=== PATIENT | male | born 1950 | race Caucasian/White ===

== ENCOUNTER 2019-06-27 07:02 | Outpatient (CLI) | payer MEDICARE, SELFPAY ==
[2019-06-27 07:06] VITALS: BMI 28.8
--- NOTE | 2019-06-27 07:12 | ECG_ITS ---
NAME OF STUDY: EXERCISE SESTAMIBI STRESS TEST INDICATION: Chest Pain Baseline blood pressure of 151/90 mm Hg, heart rate 66 beats per minute and oxygen saturation of 95%. EKG showed normal sinus rhythm with rightward axis. Nonspecific ST-T wave changes. The patient exercised for 7 minutes on a standard Kenneth protocol. Patient attained a maximum heart rate of 141 beats per minute(94 % of the maximum predicted heart rate) with a blood pressure at the peak exercise of 183/83 mm Hg and oxygen saturation of 91%. The EKG at the peak exercise revealed sinus tachycardia with [address] segment depression in inferolateral leads. Patient did not have any chest pain or any significant arrhythmia with the exercise. During the recovery phase, there were no new changes. Blood pressure at the end of the recovery phase was 180/97 mm Hg with a heart rate of 94 beats per minute and oxygen saturation of 98%. CONCLUSION: 1. Equivocal EKG response to treadmill exercise. 2. No exercise-induced chest pain or cardiac arrhythmia. 3. Good exercise tolerance, attained a maximum of 10.2 METs. Maximum VO2 of 35.7 mL/kg/min. 4. Baseline hypertension with normal response to exercise. 5. Perfusion scan will be documented separately. Electronically Signed On 06-27-2019 13:21:10 AUTOCUTTER by Myrna Smith M.D. [email or web address]
--- NOTE | 2019-06-27 07:13 | NMCV_ITS ---
NM renu perf SPECT r/s* [id number] Luis Alfredo Bae Age: 68 Gender: M : 1950 Exam Date: 06/27/2019 08:06 Ordering Phys: Jose Luis Ramos MD Technologist: WANDA Cerna Exam Location: [facility] Indications: CHEST PAIN STRESS TEST Please see separate stress test report in [facility] for full findings IMAGE PROTOCOL Rest/Stress 1 Exercise Day Radiopharmaceutical Dose (mCi) Administration Site Administered by Rest: Tc-99m 10.9 IV WANDA Sam Sestamibi Stress:Tc-99m 32.5 IV WANDA Sam Sestamibi Rest: 27-Jun-2019 60 Discovery 630 Stress: 27-Jun-2019 30 Discovery 630 Radiopharmaceutical was injected at 87% maximum heart rate. Images obtained in supine and prone position. SPECT RESULTS Technical Quality: Excellent Raw Data Analysis: Normal Image Corrections: No attenuation or motion correction applied Summed Stress Score: 2 Summed Rest Score: 0 Summed Difference Score: 2 PERFUSION FINDINGS Small sized perfusion abnormality of mild severity of mid to apical inferolateral wall on supine stress images with homogeneous tracer uptake on prone stress images. This is suggestive of attenuation artifact. FUNCTIONAL RESULTS (calculated via Gated SPECT) Stress Image LV EF (%): 69 Stress EDV (mL):91 TID: 0.92 Stress ESV (mL):28 FUNCTIONAL FINDINGS: The left ventricle is normal in size. Transient Ischemia Dilatation of 0.92. There is normal left ventricular systolic function. The left ventricular ejection fraction is normal with a value of 69%. There is normal left ventricular wall thickening. Normal end systolic and end diastolic volumes. IMPRESSIONS 1. Myocardial perfusion imaging is normal. 2. Overall left ventricular systolic function is normal without regional wall motion abnormalities. 3. The left ventricular ejection fraction is normal with a value of 69%. 4. This study suggests a low likelihood of angiographically significant coronary artery disease. Myrna Smith MD (Electronically Signed) Final Date: 27 June 2019 13:24 S
[2019-06-27 09:19] VITALS: BP 180/97; PULSE 98
== END 2019-06-27 07:03 | disposition home or self-care (01) ==
LOC: CDL 07:05
PROVIDERS: Family Provider Family Medicine; PCP Family Medicine; Visit Provider Family Medicine
DX: R07.89 Other chest pain (principal)
CPT/HCPCS: 78452; 93017; A9500

== ENCOUNTER 2024-08-07 04:32 | Inpatient (IN) | payer MEDICARE, SELFPAY ==
[2024-08-07] VITALS (29 sets, daily range): BP systolic 114–169; BP diastolic 70–93; PULSE 60–81; RESP 10–96; TEMP 36.6–36.9; O2SAT 95–100; BMI 27.9
--- NOTE | 2024-08-07 04:41 | XRR_ITS ---
PROCEDURE INFORMATION: Exam: XR Chest Exam date and time: 08/07/2024 4:48 AM Age: 74 years old Clinical indication: Chest wall pain; Additional info: Chest pain TECHNIQUE: Imaging protocol: Radiologic exam of the chest. Views: 1 view. COMPARISON: CR XR chest 2V* [id number] 06/18/2020 10:15 AM FINDINGS: Lungs: Unremarkable. No consolidation. Pleural spaces: Unremarkable. No pleural effusion. No pneumothorax. Heart/Mediastinum: Unremarkable. No cardiomegaly. Bones/joints: Unremarkable. XR/XR chest 1V portable [id number] IMPRESSION: No acute findings.
--- NOTE | 2024-08-07 04:41 | ECG_ITS ---
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 Measurements Intervals [place] Rate: 66 P: 91 DC: 160 QRS: 22 QRSD: 113 T: 61 QT: 353 QTc: 371 Interpretive Statements SINUS RHYTHM MODERATE INTRAVENTRICULAR CONDUCTION DELAY [110+ ms QRS DURATION] MODERATE ST DEPRESSION [0.05+ mV ST DEPRESSION] No previous ECG available for comparison Electronically Signed On 08-07-2024 17:34:22 CDT by Kwabena Kirkland M.D. [id number] [id number]
--- NOTE | 2024-08-07 04:45 | ED_ITS ---
Documented by User: Kristine Amor MD 08/07/24 05:38 HPI - Chest Pain 2 General: Chief Complaint: Chest Pain Stated Complaint: R side of CP goes to the back and down both arms Time Seen by Provider: 08/07/24 04:38 History of Present Illness: 74-year-old man with a history of hypert ension who presents emergency room with chest pain. He says over the last few days he had a mild burning chest pain but tonight it woke him up and it was quite a bit worse. He describes a burning chest pain that radiates to his right back. No nausea. No diaphoresis. He has had some mild cough recently. No shortness of breath Related Data Allergies Allergy/AdvReac Type Severity Reaction Status Date / Time No Known Allergies Allergy Verified 08/07/24 04:40 Review of Systems 2 Narrative: Constitutional symptoms: Negative except as documented in HPI. Skin symptoms: Negative except as documented in HPI. Eye symptoms: Negative except as documented in HPI. ENMT symptoms: Negative except as documented in HPI. Respiratory symptoms: Negative except as documented in HPI. Cardiovascular symptoms: Negative except as documented in HPI. Gastrointestinal symptoms: Negative except as documented in HPI. Genitourinary symptoms: Negative except as documented in HPI. Musculoskeletal symptoms: Negative except as documented in HPI. Neurologic symptoms: Negative except as documented in HPI. Psychiatric symptoms: Negative except as documented in HPI. Endocrine symptoms: Negative except as documented in HPI. Physical Exam 2 Narrative: EXAM NARRATIVE: General: Alert, no acute distress. Skin: Warm, dry. Head: Normocephalic, atraumatic. Neck: Supple, trachea midline. Eye: Extraocular movements are intact. Ears, nose, mouth and throat: mucosa moist. Cardiovascular: Regular, Normal peripheral perfusion. Respiratory: Lungs are clear to auscultation, respirations are non-labored, breath sounds are equal, Symmetrical chest wall expansion. Gastrointestinal: Soft, Nontender, Non distended Musculoskeletal: Normal ROM, no deformity. Neurological: Alert and oriented, No focal neurological deficit observed. Psychiatric: Cooperative, appropriate mood & affect. Course 2 Vital Signs: Vital signs: Vital Signs Pulse Rate 71 08/07/24 06:03 Respiratory Rate 15 08/07/24 06:03 Blood Pressure 152/93 08/07/24 06:03 Pulse Oximetry 100 08/07/24 06:03 Oxygen Delivery Me thod Room Air 04/03/25 06:03 MDM - Chest Pain Medical Decision Making Differential diagnosis for patient with chest pain includes but is not limited to and based on the above HPI, review of systems and physical exam: Pneumonia. unstable angina. angina. Acute coronary syndrome / MO. Pulmonary embolism. Costochondritis / musculoskeletal. Pleurisy. Pericarditis. Esophageal spasm. Pancreatis. Cholecystitis. Orders placed to evaluate differential diagnosis based on the above differential, HPI and physical exam EKG: Time 4:38 AM. Rate 66. Normal sinus rhythm, nonspecific ST changes, no ectopy, normal NV & QRS intervals, This was reviewed and interpreted by myself the ER physician at 4:52 AM. Chest x-ray: No acute process. No infiltrate. No pneumothorax. This was reviewed and interpreted by myself the emergency room physician. I also reviewed the radiology report. Lab Review: Laboratory results were reviewed and interpreted by myself the emergency room physician. No leukocytosis. No anemia. No renal failure. Initial troponin was 58. Patient care transitioned to Dr. Ann at shift change awaiting repeat troponin Lab Data 08/07/24 04:41 08/07/24 04:41 Radiology Impressions Chest X-Ray 08/07/24 04:41 IMPRESSION: No acute findings. Laboratory Results WBC 7.30 10^3/uL (3.29-11.43) 08/07/24 04:41 RBC 4.31 10^6/uL (3.85-5.65) 08/07/24 04:41 Hgb 13.80 g/dL (11.27-16.99) 08/07/24 04:41 Hct 40.1 % (37-53) 08/07/24 04:41 MCV 93.0 fl (82-101) 08/07/24 04:41 MCH 32.0 pg (27-33) 08/07/24 04:41 MCHC 34.4 g/dL (30-55) 08/07/24 04:41 RDW 12.0 % (12.1-15.1) L 08/07/24 04:41 Plt Count 285 10^3/cmm (157-399) 08/07/24 04:41 MPV 8.6 fL (7.4-10.4) 08/07/24 04:41 Neut % (Auto) 66.0 % 08/07/24 04:41 Lymph % (Auto) 24.4 % 08/07/24 04:41 Wallace % (Auto) 7.0 % 08/07/24 04:41 Eos % (Auto) 2.1 % 08/07/24 04:41 Baso % (Auto) 0.4 % 08/07/24 04:41 Neut # (Auto) 4.82 10^3/uL (1.8-7.7) 08/07/24 04:41 Lymph # (Auto) 1.8 10^3/uL (0.8-4.8) 08/07/24 04:41 Wallace # (Auto) 0.5 10^3/uL (0.2-0.9) 08/07/24 04:41 Eos # (Auto) 0.2 10^3/uL (0.0-0.8) 08/07/24 04:41 Baso # (Auto) 0.0 10^3/uL (0.0-0.1) 08/07/24 04:41 Nucleated RBC % (auto) 0 % 08/07/24 04:41 Nucleated RBCs # 0.0 /100WBC 08/07/24 04:41 Sodium 135 mmol/L (136-145) L 08/07/24 04:41 Potassium 3.9 mmol/L (3.5-5.1) 08/07/24 04:41 Chloride 98 mmol/L (98-107) 08/07/24 04:41 Carbon Dioxide 26 mmol/L (22-29) 08/07/24 04:41 Anion Gap 14.9 (5-19) 08/07/24 04:41 BUN 15 mg/dL (8-23) 08/07/24 04:41 Creatinine 1.2 mg/dL (0.7-1.2) 08/07/24 04:41 GFR Calculation Not Reportable 08/07/24 04:41 Glucose 137 mg/dL (65-115) H 08/07/24 04:41 Calculated Osmolality 283 mOsm/kg (285-295) L 08/07/24 04:41 Calcium 9.5 mg/dL (8.5-10.5) 08/07/24 04:41 Total Bilirubin 0.4 mg/dL (0.15-1.2) 08/07/24 04:41 AST 19 U/L (0-40) 08/07/24 04:41 ALT 16 U/L (0-41) 08/07/24 04:41 Alkaline Phosphatase 117 U/L (40-130) 08/07/24 04:41 Troponin T Baseline 58 ng/L (0-15) H 08/07/24 04:41 Troponin T 120 Minute 61.85 ng/L (0-15) H 08/07/24 06:13 Delta Troponin T 3.85 ABS# (0-10) 08/07/24 06:13 Total Protein 7.6 g/dL (6.6-8.7) 08/07/24 04:41 Albumin 4.5 g/dL (3.5-5.2) 08/07/24 04:41 Globulin 3.1 g/dL (1.3-4.6) 08/07/24 04:41 Discharge Plan Discharge Patient Disposition: Placed in Observation Clinical Impression: Unstable angina pectoris Condition: Stable Referrals: Jose Luis Ramos MD [Primary Care Provider] - Print Language: Frisian Sign Out Sign Out Data: Patient Sign Out occurred on 08/07/24 at 05:44. Patient's care was discussed, and care was transferred from Kristine Amor MD to Troy Ann DO. Coding Level of Care Code ED Resaw Operator for Chg Fwd Documented by User: Troy Ann DO 08/07/24 06:46 HPI - Chest Pain 2 General: Chief Complaint: Chest Pain Stated Complaint: R side of CP goes to the back and down both arms Time Seen by Provider: 08/07/24 04:38 Related Data Allergies Allergy/AdvReac Type Severity Reaction Status Date / Time No Known Allergies Allergy Verified 08/07/24 04:40 Review of Systems 2 Card: Reports: chest pain Course 2 Vital Signs: Vital signs: Vital Signs Pulse Rate 71 08/07/24 06:03 Respiratory Rate 15 08/07/24 06:03 Blood Pressure 152/93 08/07/24 06:03 Pulse Oximetry 100 08/07/24 06:03 Oxygen Delivery Me thod Room Air 08/07/24 06:03 MDM - Chest Pain Medical Decision Making Differential diagnosis for patient with chest pain includes but is not limited to and based on the above HPI, review of systems and physical exam: Pneumonia. unstable angina. angina. Acute coronary syndrome / MO. Pulmonary embolism. Costochondritis / musculoskeletal. Pleurisy. Pericarditis. Esophageal spasm. Pancreatis. Cholecystitis. Orders placed to evaluate differential diagnosis based on the above differential, HPI and physical exam EKG: Time 4:38 AM. Rate 66. Normal sinus rhythm, nonspecific ST changes, no ectopy, normal NV & QRS intervals, This was reviewed and interpreted by myself the ER physician at 4:52 AM. Chest x-ray: No acute process. No infiltrate. No pneumothorax. This was reviewed and interpreted by myself the emergency room physician. I also reviewed the radiology report. Lab Review: Laboratory results were reviewed and interpreted by myself the emergency room physician. No leukocytosis. No anemia. No renal failure. Initial troponin was 58. Patient care transitioned to Dr. Ann at shift change awaiting repeat troponin Care assumed at change of shift from Dr. Amor. History when talking to the patient he is getting chest pain with exertion particularly when he walks or resolves after a few minutes this been going on for a while other times no escalates or does other exertional activities he gets were more of what he describes his chest discomfort. Overnight he had much more intense discomfort without any exertion associated with it. It waxes and wanes. He does have some subtle ST depression at V2 3 and 4 we do not have any old twelve-lead EKGs but I do have 12 leads from a stress test that was done 2 years ago these changes appear to be new. Stress test done at that time was read as having attenuation artifact with a normal ejection fraction and overall low incidence of ischemia no further evaluation was done because a stress test was read as negative. Patient reports despite this he has intermittently had chest discomfort since then but just much more intense particularly last night. Patient given aspirin and started on heparin also 1 inch of Nitropaste placed he still reporting some discomfort at this time. Radiates into his back and bilaterally into the arms. Discussed with Dr. Kirkland as well as the hospitalist. Will admit to the hospitalist on observation Dr. Kirkland indicated he is going to consider doing a angiogram later today and asked the patient be kept n.p.o. and started on heparin rather than Lovenox. I have reviewed with the patient orders written Medical Records I reviewed the patient's medical records. Lab Data I reviewed the patient's lab results. 08/07/24 04:41 08/07/24 04:41 Radiology Impressions Chest X-Ray 08/07/24 04:41 IMPRESSION: No acute findings. Laboratory Results WBC 7.30 10^3/uL (3.29-11.43) 08/07/24 04:41 RBC 4.31 10^6/uL (3.85-5.65) 08/07/24 04:41 Hgb 13.80 g/dL (11.27-16.99) 08/07/24 04:41 Hct 40.1 % (37-53) 08/07/24 04:41 MCV 93.0 fl (82-101) 08/07/24 04:41 MCH 32.0 pg (27-33) 08/07/24 04:41 MCHC 34.4 g/dL (30-55) 08/07/24 04:41 RDW 12.0 % (12.1-15.1) L 08/07/24 04:41 Plt Count 285 10^3/cmm (157-399) 08/07/24 04:41 MPV 8.6 fL (7.4-10.4) 08/07/24 04:41 Neut % (Auto) 66.0 % 08/07/24 04:41 Lymph % (Auto) 24.4 % 08/07/24 04:41 Wallace % (Auto) 7.0 % 08/07/24 04:41 Eos % (Auto) 2.1 % 08/07/24 04:41 Baso % (Auto) 0.4 % 08/07/24 04:41 Neut # (Auto) 4.82 10^3/uL (1.8-7.7) 08/07/24 04:41 Lymph # (Auto) 1.8 10^3/uL (0.8-4.8) 08/07/24 04:41 Wallace # (Auto) 0.5 10^3/uL (0.2-0.9) 08/07/24 04:41 Eos # (Auto) 0.2 10^3/uL (0.0-0.8) 08/07/24 04:41 Baso # (Auto) 0.0 10^3/uL (0.0-0.1) 08/07/24 04:41 Nucleated RBC % (auto) 0 % 08/07/24 04:41 Nucleated RBCs # 0.0 /100WBC 08/07/24 04:41 Sodium 135 mmol/L (136-145) L 08/07/24 04:41 Potassium 3.9 mmol/L (3.5-5.1) 08/07/24 04:41 Chloride 98 mmol/L (98-107) 08/07/24 04:41 Carbon Dioxide 26 mmol/L (22-29) 08/07/24 04:41 Anion Gap 14.9 (5-19) 08/07/24 04:41 BUN 15 mg/dL (8-23) 08/07/24 04:41 Creatinine 1.2 mg/dL (0.7-1.2) 08/07/24 04:41 GFR Calculation Not Reportable 08/07/24 04:41 Glucose 137 mg/dL (65-115) H 08/07/24 04:41 Calculated Osmolality 283 mOsm/kg (285-295) L 08/07/24 04:41 Calcium 9.5 mg/dL (8.5-10.5) 08/07/24 04:41 Total Bilirubin 0.4 mg/dL (0.15-1.2) 08/07/24 04:41 AST 19 U/L (0-40) 08/07/24 04:41 ALT 16 U/L (0-41) 08/07/24 04:41 Alkaline Phosphatase 117 U/L (40-130) 08/07/24 04:41 Troponin T Baseline 58 ng/L (0-15) H 08/07/24 04:41 Troponin T 120 Minute 61.85 ng/L (0-15) H 08/07/24 06:13 Delta Troponin T 3.85 ABS# (0-10) 08/07/24 06:13 Total Protein 7.6 g/dL (6.6-8.7) 08/07/24 04:41 Albumin 4.5 g/dL (3.5-5.2) 08/07/24 04:41 Globulin 3.1 g/dL (1.3-4.6) 08/07/24 04:41 All radiology interpretation(s) finalized by discharge EKG Data EKG 1: Interpretation: EKG 4:38 AM August 07, [address] depression very mild at V2 [address] elevation or T wave inversion rate of 66 EKG 2: Interpretation: August 08, 2019 6:07 AM Is sinus rhythm rate of 67 ST depression noted in V2 through the and 4 more notable than previous. This is new compared to EKG from stress test of 2020. There is no ST elevation or T wave inversion. Clincial Decision Support The following clinical decision support tools were used to aid in care of the patient HEART Score -> History: Highly Suspicious, EKG: Significant ST-deviation, Age: 65 or more yrs, Risk Factors: 1 or 2 Risk Factors, Troponin: Baseline Trop >45 ng/L. Resulting HEART Score: 9. Discharge Plan Discharge Patient Disposition: Placed in Observation Clinical Impression: Unstable angina pectoris Condition: Stable Referrals: Jose Luis Ramos MD [Primary Care Provider] - Print Language: Frisian Sign Out Sign Out Data: Patient Sign Out occurred on 08/07/24 at 05:44. Patient's care was discussed, and care was transferred from Kristine Amor MD to Troy Ann DO. Coding Level of Care Code ED Resaw Operator for Chg Sukhwinder
[2024-08-07 04:47] LABS: Basophils % 0.4 %; Eosinophils # 0.2 10^3/uL (0.0-0.8); Eosinophils % 2.1 %; Hematocrit 40.1 % (37-53); Lymphocytes # 1.8 10^3/uL (0.8-4.8); Lymphocytes % 24.4 %; Mean Corpuscular HGB Conc 34.4 g/dL (30-55); Mean Platelet Volume 8.6 fL (7.4-10.4); Monocytes # 0.5 10^3/uL (0.2-0.9); Neutrophils # 4.82 10^3/uL (1.8-7.7); Nucleated Red Blood Cells % 0 %; Platelet Count 285 10^3/cmm (157-399); Red Blood Count 4.31 10^6/uL (3.85-5.65)
[2024-08-07 05:04] LABS: Troponin(5th) Baseline 58 ng/L (0-15)
[2024-08-07 05:05] LABS: Alanine Aminotransferase 16 U/L (0-41); Albumin Level 4.5 g/dL (3.5-5.2); Alkaline Phosphatase 117 U/L (40-130); Anion Gap 14.9 (5-19); Aspartate Amino Transferase 19 U/L (0-40); Blood Urea Nitrogen 15 mg/dL (8-23); Calcium 9.5 mg/dL (8.5-10.5); Carbon Dioxide 26 mmol/L (22-29); Chloride 98 mmol/L (98-107); Creatinine Clr Calc Pharmacy 55.1292; Globulin 3.1 g/dL (1.3-4.6); Glucose 137 mg/dL (65-115); Osmolality Calculated 283 mOsm/kg (285-295); Potassium 3.9 mmol/L (3.5-5.1); Sodium 135 mmol/L (136-145); Total Bilirubin 0.4 mg/dL (0.15-1.2); Total Protein 7.6 g/dL (6.6-8.7)
--- NOTE | 2024-08-07 06:07 | ECG_ITS ---
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
[2024-08-07 06:35] LABS: Troponin 5 2HR 61.85 ng/L (0-15); Troponin 5 2HR Delta 3.85 ABS# (0-10)
[2024-08-07] MEDS: heparin 5,000 unit/mL INJ 1 mL IVP (06:58)
[2024-08-07] MEDS: heparin drip 25,000 UNIT/500 ML PREMIX 24 UNIT IV ×2 (06:59→16:21)
[2024-08-07] MEDS: nitroglycerin 1 gm/inch oint Pkt 1 INCH TOPICAL ×3 (07:00→20:03)
--- NOTE | 2024-08-07 08:11 | PC.NURSE ---
PATIENT COMPLAINING OF PAIN. PATIENT STATES LESS THAN WHEN HE ARRIVED BUT MAYBE I WAS EXPECTING A MIRACLE DRUG. PROVIDER NOTIFIED.
--- NOTE | 2024-08-07 08:13 | ECG_ITS ---
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 Measurements Intervals [place] Rate: 59 P: 76 [place]: 164 QRS: 32 QRSD: 97 T: 52 QT: 392 QTc: 390 Interpretive Statements SINUS BRADYCARDIA Compared to ECG 08/07/2024 06:07:10 Sinus rhythm no longer present ST (T wave) deviation no longer present Electronically Signed On 08-07-2024 17:34:19 CDT by Kwabena Kirkland M.D. [email or web address] [id number]
[2024-08-07] MEDS: nitroglycerin drip 50 MG/250 ML PREMIX IV (08:30)
--- NOTE | 2024-08-07 08:31 | XACV_ITS ---
Exam Room: 2 Ht: 173 cm Wt: 83 kg BSA: 2.02 m2 Gender: Male : 1950 Any Known Allergies: No known allergies Exam Priority: Routine Procedure(s): Procedure Description: Diagnostic procedure Procedure Description: Coronary angiogram Diagnostic Cath Status: Urgent Diagnostic Findings * Left Main has no significant disease. * Mid Left Anterior Descending: severe 90% stenosis, MIC: 3 flow. Calcified lesion. * Mid Right Coronary Artery: severe 70-80% stenosis, MIC: 3 flow. * Mid Circumflex: 99% stenosis, MIC: 2 flow. * First Obtuse Marginal Branch Segment: critical 95% stenosis, MIC: 3 flow. * Coronary angiography shows right dominance. Conclusions 1. Severe multivessel coronary artery disease. Recommendations * We will transfer patient for CABG evaluation. * Continue aspirin. Resume heparin gtt 2 hours after TR band removal. Interventional RX Recommendation: CABG Diagnostic RX Recommendation: CABG Anticoagulation: Heparin Pressures Phase:Rest AO : 111 / 77 ( 95 ) @ 10:13:00 AM Clinical Evaluation EBL: 5mL-10mL Procedural Details Procedure Consent Obtained. Current Diagnosis : NSTEMI. Pre-Procedure Time Out. Identified patient by full name and date of as verbalized by the patient/guarantor. Does the consent match the physician's order: Yes. Accurate & Complete Informed Consent: Yes. Inpatient/Outpatient History & Physical on Chart: Yes. If H&P is completed, is and addenduem needed: No; If yes, is the addendum complete: N/A. Visualize and Verify Site with Patient/Guarantor: N/A. Relevant Radiology Images available: Yes. Pre-op teaching completed and patient verbalized understanding. The risks, benefits, and alternatives of sedation and/or procedure were discussed by physician. The patient agrees to continue. Procedure started. [facility] Clinical Fraility Score: 3: Managing Well. Ice Carver Indications: ACS > 24 hours. Chest Pain Symptom Assessment: Typical Angina Symptoms. Correct patient, site and procedure confirmed by cath team. Current diagnosis: NSTEMI. IV Site on Arrival: 20 gauge in the right anticubital. IV Site on Arrival: 20 gauge in the left anticubital. IV Fluids: 0.9% NaCl at KVO. 0 mL infused prior to laborer/key man. Oxygen started at 2liters/min via nasal canula. right groin was prepped with chloroprep then draped in the usual sterile fashion. right radial was prepped with chloroprep then draped in the usual sterile fashion. Physician arrived. Baseline sample Acquired. HR: 0 BPM. Physician scrubbed in. Immediate Pre-Procedure Time Out. Correct Patient: Yes; Correct Procedure: Yes; Correct Site: Yes; Correct Patient Position: Yes; Correct Supplies: Yes; Dried Flammable Prep: Yes; Blood Products Available: N/A;. Lidocaine 1% infiltrated to the right radial. Arterial access obtained. Vital chart was stopped. A 5 norwegian TIG catheter in over wire. Multiple views taken of left coronary artery. Catheter redirected to the RCA. Catheter removed over the exchange wire. A 5 norwegian JR4 catheter in over wire. Multiple views taken of right coronary artery. Catheter removed over the exchange wire. A 5 norwegian Angled Pig catheter in over wire. Catheter removed over the exchange wire. A TR Band was successful obtaining hemostatsis at the Right Radial artery insertion site. Post Procedure: Pulses reassessed and unchanged. PERRLA. Strong, equal hand color drum worker bilaterally. No VTE prophylaxis required. Medication's Wasted: Lidocaine 1% = 18 mL. Medication's Wasted: Nitro = 49.5 mcg. Medication's Wasted: Heparin = 3500 units. Medication's Wasted: Other = Fentanyl 50mcg Versed 1 mg. Total IV fluids: 40 mL. Post-op diagnosis: CAD. Complications: None. Estimated blood loss: 5mL-10mL. Responsiveness - Normal response to verbal stimuli; alert and oriented, PERRLA. Airway - Unaffected, no intervention required; spontaneous ventilation. Circulation: W/N/L, pulses unchanged. Nausea/Vomiting: No. Procedure completed. Patient transferred by wheelchair to 1st floor. Vital chart was stopped. Access Site Site: Right Radial artery Sheath Size: 6 Fr Hemostasis Method: TR Band Hemostasis Success: Successful Procedure Medications Start: 8:52 AM Stop: 8:52 AM Medication: Versed Amount: 1 mg Route: I.V. Start: 8:52 AM Stop: 8:52 AM Medication: Fentanyl Amount: 50 mcg Route: I.V. Start: 9:00 AM Stop: 9:00 AM Medication: Nitrogylcerin Amount: 200 mcg Route: I.A. Start: 9:02 AM Stop: 9:02 AM Medication: Nitrogylcerin Amount: 100 mcg Route: I.A. Start: 9:04 AM Stop: 9:04 AM Medication: Heparin Amount: 2500 units Route: I.V. Start: 9:16 AM Stop: 9:16 AM Medication: Nitrogylcerin Amount: 200 mcg Route: I.A. I, the attending physician, have reviewed and verified all procedure medications. Yes, all medications given per verbal order History/Risk Factors Hypertension: Yes Dyslipidemia: No Peripheral Arterial Disease (PAD): No Myocardial Infarction (VA): No Obesity: No Renal Disease: No Prior Interventions PCI: No CABG: No Valve Surgery: No Report Signatures Finalized by Kwabena Kirkland MD on 08/07/2024 02:19 PM
--- NOTE | 2024-08-07 08:52 | W.PM.OPSUD ---
Surgery/Procedure H&P Update DATE OF PROCEDURE: August 07, 2024 DATE H&P PERFORMED: 08/07/24 H&P UPDATE INFORMATION: I have reviewed H&P completed within last 30 days, I have examined patient prior to procedure and No changes to prior documentation PREOP DIAGNOSIS: NSTEMI PRIMARY INDICATION FOR PROCEDURE: NSTEMI PLANNED PROCEDURE: Left heart cath with possible percutaneous coronary intervention PATIENT REASSESSED PRIOR TO SEDATION, WITH NO CHANGE NOTED: Yes PHYSICAL EXAM: alert, oriented x 3, clear to auscultation bilaterally and regular rate & rhythm AIRWAY EVAL/ANESTHESIA PLAN: normal airway, ASA III, Local Anesthesia, Risks, benefits & alternatives of sedation and/or procedure discussed and Patient agrees to continue as planned ADDITIONAL INFORMATION: Moderate sedation
--- NOTE | 2024-08-07 10:12 | PM.PROC ---
Procedure Note: Date of procedure: 08/07/24 Pre-procedure diagnosis: NSTEMI Post-procedure diagnosis: other (Severe multivessel coronary artery disease) Procedure: Left main artery is patent. Mid LAD is heavily calcified and has severe 80 to 90% stenosis. Mid left circumflex artery has severe 90 to 99% stenosis. OM1 has ostial severe stenosis. Mid RCA has severe 70 to 80% stenosis. We will recommend CT surgery evaluation for CABG. Will resume heparin 2 hours after TR band removal. Obtain echocardiogram. Coding Level of Care Code Acute Code for Aleta Pretty
--- NOTE | 2024-08-07 10:35 | PC.NURSE ---
Addendum entered by Noreen Ruiz RN 08/07/24 10:42: Received verbal instruction to start heparin drip 2 hour post TR Band removal. Original Note: Patient received from crown and bridge dental lab technician s/p [facility] via right radial access. Pulse palpable, warm and pink right extremity. Instructed patient on site care and restrictions. Patient reports performing self-catheterization up to 4x daily. Provided patient with supplies. ZOHRA Rodriguez at bedside discussing possible transfer to [facility] for potential CABG.
--- NOTE | 2024-08-07 10:47 | USCV_ITS ---
Luis Alfredo Bae Age: 74 Gender: M : 1950 Exam Date: 08/07/2024 12:25 Ordering Phys: Jennifer Almanzar NP Technologist: Exam Location: [facility] [place] Indication: cad BP: 135 / 80 HR: 87 Rhythm: Sinus Technical Quality: Adequate MEASUREMENTS (Male / Female) Normal Values 2D ECHO LV Diastolic Diameter PLAX 4.0 cm 4.2 - 5.9 / 3.9 - 5.3 cm IVS Diastolic Thickness 1.1 cm 0.6 - 1.0 / 0.6 - 0.9 cm IVS Systolic Thickness 1.6 cm LVPW Diastolic Thickness 1.3 cm 0.6 - 1.0 / 0.6 - 0.9 cm LVPW Systolic Thickness 1.4 cm LVOT Diameter 2.1 cm LV Ejection Fraction 2D Teich 66.4 % LV Ejection Fraction MOD 4C 64.9 % LV Ejection Fraction MOD 2C 64.4 % LV Ejection Fraction 2C AL 64.4 % LA Diameter 3.7 cm RA Systolic Volume 4C AL 26.4 ml RA Systolic Volume 4C MOD 25.1 ml M-MODE LA Ao Ratio MM 0.9 MV E Point Septal Separation 1.1 cm AV Cusp Separation MM 2.1 cm DOPPLER AV Peak Velocity 282.6 cm/s LVOT Peak Velocity 120.0 cm/s AV Area Cont Eq vti 3.9 cm squared AV Area Cont Eq pk 1.4 cm squared MV Peak Velocity 108.0 cm/s TV Peak Velocity 247.0 cm/s TR Peak Velocity 257.0 cm/s TR Peak Gradient 26.4 mmHg TV Peak E Velocity 84.0 cm/s PV Peak Velocity 101.0 cm/s FINDINGS Left Ventricle Left ventricle is normal in size. LV systolic function is normal with EF of 55-60%. No regional wall motion abnormalities are seen. Right Ventricle Normal in size and function Right Atrium Normal in size Left Atrium Normal in size Mitral Valve Mild to moderate mitral annular calcification. Mild to moderate mitral regurgitation. Aortic Valve Aortic valve is thickened. No significant stenosis. Mild to moderate aortic regurgitation Tricuspid Valve Insufficient TR jet to evaluate RVSP. Pulmonic Valve Not well visualized Pericardium Normal Aorta Normal in size IVC Not visualized CONCLUSIONS LV systolic function is normal with EF of 55-60%. Mild to moderate mitral regurgitation Mild to moderate aortic regurgitation No comparison studies are available. Kwabena Kirkland MD (Electronically Signed) Final Date: 07 August 2024 17:41 S
--- NOTE | 2024-08-07 11:14 | PM.HP ---
Providers/Chief Complaint Admitting Physician: Kwabena Kirkland M.D Primary Care Provider: Jose Lusi Ramos MD Chief Complaint: R side of CP goes to the back and down both arms History of Present Illness Luis Alfredo Bae is a 74 year old male with a history of hypertension presented to the emergency room this morning with chest pain. He states that in the past he has had chest pain on exertion relieved with rest. He developed chest pain at the center of his chest that was burning like pain that radiated to his back and down his arm. No associated nausea vomiting or diaphoresis. Denies any shortness of breath. He did have some subtle ST depression and EKG changes. He was started on heparin, given aspirin, and given Nitropaste. At the time of our visit he stated that he did not have any chest pain. He was kept NPO. His baseline troponin was elevated at 58 and 120-minute troponin was 61.85. He denies any significant cardiac history. Review of Systems Narrative: Consitutional: denies fever, chills, body aches, or changes in appetite, denies abnormal weight loss Eyes: Denies changes in vision Card: Reports chest pain on exertion relieved with rest, denies palpitations, irregular heart rhythm, edema, syncope, shortness of breath, orthopnea, leg pain with exertion Resp: Denies shortness of breath, denies hemoptysis, denies cough GI: denies abdominal pain, denies nausea or voimting, denies blood in stool : denies blood in urine, denies dysuria Musc: Denies extremity pain, denies limited range of motion or recent injury Skin: Denies rash, lesions, or wounds, denies changes to skin color Neuro: Denies nubmness in extremities, h/a, s/s of stroke Nicholas: Denies easy bruiding/bleeding Medications/Allergies Home Medications ?Medication ?Instructions ?Recorded ?Confirmed ?Last Taken ?Type cetirizine 10 mg tablet 10 mg PO DAILY 08/07/24 08/07/24 08/06/24 History cholecalciferol (vitamin D3) 10 10 mcg PO DAILY 08/07/24 08/07/24 08/06/24 History mcg (400 unit) tablet (Vitamin D3) lisinopril 20 See Rx Instructions .Route .COMPLEX 08/07/24 08/07/24 08/06/24 History mg-hydrochlorothiazide 12.5 mg tablet tamsulosin 0.4 mg capsule 0.4 mg PO DAILY 08/07/24 08/07/24 08/06/24 History Allergies Allergy/AdvReac Type Severity Reaction Status Date / Time No Known Allergies Allergy Verified 08/07/24 04:40 Vitals/I&O/Wt Last Vital Signs Temp 97.9 F 08/07/24 10:21 Pulse 64 08/07/24 10:21 Resp 21 H 08/07/24 10:21 BP 134/75 08/07/24 10:21 Pulse Ox 97 08/07/24 10:21 O2 Del Method Room Air 08/07/24 10:57 08/06/24 08/07/24 08/07/24 22:59 06:59 14:59 Intake Total 0 / 0 Balance 0 / 0 Weight last 48 hrs Weight 184 lb Physical Exam Narrative: General: No apparent distress, healthy appearing, well nourished HENMT: normoceophalic Neck: No carotid bruit bilaterally Muskuloskeletal: Full ROM Respiratory: Normal respiratory effort, clear to auscultation bilaterally throughout all lung puga, no use of accessory muscles Cardio: No JVD, regular rate, regular rhythm, S1 S2 normal, no murmurs, peripheral pulses 2+ radial palpated bilaterally GI: Normal to inspection, nondistended Extremities: Full ROM, normal, normal capillary refill, no cyanosis or edema Neuro: Alert and oriented x4, no focal motor deficits Psych: Affect normal, denies suicidal ideation, mental status grossly normal Skin: No rashes or lesions noted, no wounds Data 08/07/24 04:41 08/07/24 04:41 A&P Assessment and plan (1) Unstable angina pectoris: (2) Hypertension: Qualifiers: Hypertension type: primary hypertension Qualified Code(s): I10 - Essential (primary) hypertension Plan Due to patient having unstable angina, EKG changes, as well as elevated torponin, patient was taken to the wharf laborer. He was found to have severe three vessel coronary artery disease. We will restart heparin drip per protocol 2 hours after TR band has been removed. At this time, patient would like to be seen by Dr. Chowdhury in [facility] for possible CABG. He has been accepted at this time. We have initiated this transfer process. Will continue to monitor for s/s of angina/ekg changes. At this time, he is stable without chest pain. We will start him on statin therapy, beta schuyler, and aspirin daily. PDMP PDMP Reviewed: Not Reviewed Attestations Medical Necessity Statement*: Patient stay expected to cross 2 midnights due to the above defined care. Coding Level of Care Code Acute Code for Chg Fwd Diagnoses Unstable angina pectoris I20.0 Primary hypertension I10 Hypertension type: primary hypertension
--- NOTE | 2024-08-07 11:23 | ECG_ITS ---
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
[2024-08-07 12:00] LABS: Chol HDL Ratio 4.57 mg/dL (1.0-5.00); Cholesterol 210 mg/dL (0-200); HDL Cholesterol 46 mg/dL (60-100); LDL Cholesterol Calculated 151 mg/dL (50-129); LDL HDL Ratio 3.28 RATIO (0.00-3.22); Triglycerides 66 mg/dL (0-150)
[2024-08-07 12:01] LABS: Estmated Average Glucose 120; Hemoglobin A1C 5.8 % (4.0-6.0)
--- NOTE | 2024-08-07 13:05 | PC.NURSE ---
Initiated TR band removal at 1100 removing 1-2ml of air every 15-20min until all air removed from band. TR band removed at this time. No s/s of bleeding or hematoma formation observed. Covered site with 2x2 and coban. Pulse remains palpable with warm pink skin to right extremity. Instructed patient on site care and restrictions. Patient verbalized complete understanding.
[2024-08-07] MEDS: aspirin 81 mg Chew Tablet 324 MG PO (13:22)
[2024-08-07] MEDS: acetaminophen 325 mg Tablet 650 MG PO (20:31)
[2024-08-07] MEDS: atorvastatin 40 mg Tablet PO (20:31)
[2024-08-07 23:17] LABS: Partial Thromboplastin Time 81.2 SECONDS (23.9-36.7)
[2024-08-08] VITALS (11 sets, daily range): BP systolic 100–115; BP diastolic 55–61; PULSE 63–79; RESP 12–20; TEMP 36.6–37.1; O2SAT 95–98
[2024-08-08 05:33] LABS: Basophils % 0.4 %; Eosinophils # 0.1 10^3/uL (0.0-0.8); Eosinophils % 0.9 %; Hematocrit 31.2 % (37-53); Lymphocytes # 1.6 10^3/uL (0.8-4.8); Lymphocytes % 15.2 %; Mean Corpuscular HGB Conc 35.3 g/dL (30-55); Mean Corpuscular Hemoglobin 32.7 pg (27-33); Mean Corpuscular Volume 92.9 fl (82-101); Mean Platelet Volume 8.7 fL (7.4-10.4); Monocytes # 0.8 10^3/uL (0.2-0.9); Monocytes % 7.3 %; Neutrophils # 7.81 10^3/uL (1.8-7.7); Neutrophils % 75.9 %; Nucleated Red Blood Cells % 0 %; Platelet Count 231 10^3/cmm (157-399); Red Blood Count 3.36 10^6/uL (3.85-5.65); Red Cell Distribution Width 12.1 % (12.1-15.1); White Blood Count 10.28 10^3/uL (3.29-11.43)
[2024-08-08 05:49] LABS: Anion Gap 12.2 (5-19); Blood Urea Nitrogen 16 mg/dL (8-23); Calcium 8.7 mg/dL (8.5-10.5); Carbon Dioxide 24 mmol/L (22-29); Chloride 101 mmol/L (98-107); Creatinine Clr Calc Pharmacy 62.1055; Glucose 113 mg/dL (65-115); Osmolality Calculated 278 mOsm/kg (285-295); Potassium 4.2 mmol/L (3.5-5.1); Sodium 133 mmol/L (136-145)
[2024-08-08 05:52] LABS: Partial Thromboplastin Time 88.2 SECONDS (23.9-36.7)
--- NOTE | 2024-08-08 06:56 | PC.NURSE ---
Adjusted heparin drip according to protocol at this time. Next PTT at 1300
[2024-08-08] MEDS: tamsulosin 0.4 mg Capsule PO (07:21)
[2024-08-08] MEDS: lisinopril 20 mg Tablet PO (07:22)
[2024-08-08] MEDS: cetirizine 10 mg Tablet PO (07:22)
[2024-08-08] MEDS: metoprolol succinate ER (24 HR) 25 mg Tablet 12.5 MG PO (07:22)
[2024-08-08] MEDS: aspirin 81 mg EC Tablet PO (07:22)
[2024-08-08] MEDS: nitroglycerin 1 gm/inch oint Pkt 1 INCH TOPICAL ×3 (07:22→20:19)
--- NOTE | 2024-08-08 08:26 | PC.SOCIAL ---
IMM Update Pg. 2 of IMM updated and reviewed with patient, who verbalized understanding. Copy provided.
[2024-08-08] MEDS: heparin drip 25,000 UNIT/500 ML PREMIX 19 UNIT IV (13:11)
--- NOTE | 2024-08-08 13:54 | ECG_ITS ---
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 Measurements Intervals [employer] Rate: 67 P: 0 NE: 133 QRS: 6 QRSD: 97 T: -23 QT: 352 QTc: 374 Interpretive Statements SINUS RHYTHM Compared to ECG 08/07/2024 11:23:46 No significant changes Electronically Signed On 08-09-2024 18:16:03 CDT by Kwabena Kirkland M.D. [id number] [id number]
[2024-08-08 14:24] LABS: Partial Thromboplastin Time 67.8 SECONDS (23.9-36.7)
--- NOTE | 2024-08-08 14:40 | P.PN_ITS ---
<Statement entered by Pablito Perkins MD - 08/09/24 01:10> Patient was evaluated and cared for in conjunction with an advanced practice practitioner. I personally examined the patient and reviewed the chart and all pertinent data including imaging, telemetry, and laboratory results. I discussed the patient in detail with the advanced practice practitioner. Please see their note for complete H&P testing result and agreed upon plan of care for the patient. Denies any significant chest pain mild shortness in the back GENERAL: Patient is alert, awake and oriented x3. HEART: Regular S1 and S2. No murmur, rub or gallop. LUNGS: Clear to auscultate bilaterally. CENTRAL NERVOUS SYSTEM: Grossly nonfocal. EXTREMITIES: Lower extremities with out edema bilaterally. Assessment and plan Non-ST elevation CT Multivessel coronary artery Hypertension Continue aspirin statin beta-schuyler Add isosorbide mononitrate Continue IV heparin Awaiting bed for [facility]. Patient has been explained that we can trial some other hospital since [facility] is busy but patient would like to go to [facility] to be a specific surgeon due to latter-day belief of being Taoist Will abide by his wishes we will continue to monitor him closely Subjective 2 Subjective: Patient overall doing well today. He did have an episode of mild back discomfort patient overall doing well the day. He did have an episode of mild back discomfort and shoulder discomfort on the right but this resolved quickly. EKG was normal without acute changes. Currently on nitrobid as well as heparin drip. Still awaiting to hear from [facility]. Vitals/I&O/Wt Last Vital Signs Temp 97.8 F 08/08/24 12:00 Pulse 67 08/08/24 13:13 Resp 14 08/08/24 12:00 BP 100/56 08/08/24 13:13 Pulse Ox 96 08/08/24 12:00 O2 Del Method Room Air 08/08/24 12:00 08/07/24 08/08/24 08/08/24 22:59 06:59 14:59 Intake Total 0 / 13.9 333.933 / 347.833 119.7 / 119.7 Balance 0 / -361.1 333.933 / -27.167 119.7 / 119.7 Weight last 48 hrs Weight 197 lb 6.4 oz Weight 185 lb 9.6 oz Weight 184 lb Physical Exam 2 Narrative: General: No apparent distress, healthy appearing, well nourished HENMT: normoceophalic Neck: No carotid bruit bilaterally Muskuloskeletal: Full ROM Respiratory: Normal respiratory effort, clear to auscultation bilaterally throughout all lung puga, no use of accessory muscles Cardio: No JVD, regular rate, regular rhythm, S1 S2 normal, no murmurs, peripheral pulses 2+ radial palpated bilaterally GI: Normal to inspection, nondistended Extremities: Full ROM, normal, normal capillary refill, no cyanosis or edema Neuro: Alert and oriented x4, no focal motor deficits Psych: Affect normal, denies suicidal ideation, mental status grossly normal Skin: No rashes or lesions noted, no wounds Data 08/08/24 05:29 08/08/24 05:29 A&P Assessment and plan (1) Unstable angina pectoris: (2) Hypertension: Qualifiers: Hypertension type: primary hypertension Qualified Code(s): I10 - Essential (primary) hypertension Plan Due to patient having unstable angina, EKG changes, as well as elevated torponin, patient was taken to the pie bakery laborer. He was found to have severe three vessel coronary artery disease. We will continue heparin drip per protocol. At this time, patient would like to be seen by Dr. Chowdhury in [facility] for possible CABG. He has been accepted at this time. We have initiated this transfer process. Will continue to monitor for s/s of angina/ekg changes. At this time, he is stable without chest pain. Continue statin therapy, beta schuyler, and aspirin daily. PDMP PDMP Reviewed: Not Reviewed Attestations 2 Medical Necessity Statement*: Deferred to primary Coding Level of Care Code Acute Code for Chg Fwd Diagnoses Unstable angina pectoris I20.0 Primary hypertension I10 Hypertension type: primary hypertension
[2024-08-08] MEDS: acetaminophen 325 mg Tablet 650 MG PO (20:19)
[2024-08-08] MEDS: atorvastatin 40 mg Tablet PO (20:19)
[2024-08-08 21:21] LABS: Partial Thromboplastin Time 63.7 SECONDS (23.9-36.7)
--- NOTE | 2024-08-09 01:18 | PC.NURSE ---
EMS arrived to floor 23:45. Patient called on personal cell phone in room. Patient departed at 23:54.
== END 2024-08-08 23:54 | disposition short-term general hospital (02) | DRG 282 ==
LOC: ER 08:22 → CCL 08:38 → CSU 10:27
PROVIDERS: Emergency Medicine; Nurse Practitioner Family; Admitting Provider Internal Medicine; Emergency Provider Family Medicine; PCP Family Medicine; Visit Provider Internal Medicine
PROC: 4A023N7 Measurement of Cardiac Sampling and Pressure, Left Heart, Percutaneous Approach (ICD-10-PCS; principal; 2024-08-07 09:30)
DX: I21.4 Non-ST elevation (NSTEMI) myocardial infarction (principal); I25.10 Atherosclerotic heart disease of native coronary artery without angina pectoris; I10 Essential (primary) hypertension
CPT/HCPCS: 12345; 36415; 71045; 80048; 80053; 80061; 83036; 84484; 85025; 85730; 93005; 93306; 93458; 96365; 96366; 96367; 96374; 96375; 96376; 99152; 99153; 99285; C1769; C1887; C1894; J1644; J2250; J3010; J3490; J7030; J9999; Q9967